=== PATIENT | female | born 1950 | race Caucasian/White ===

== ENCOUNTER → 2018-11-13 | Outpatient (CLI) | payer OTHER, MEDICARE ==
[~2018-11-13] VITALS: Ht 172.7 cm; Wt 76.2 kg
[~2018-11-13] MED LIST: ALLERCLEAR10 MG PO; ASPIR 8181 MG PO; ATORVASTATIN CA40 MG PO; CALCIUM 500 +1 EAC5; CALCIUM 500 +1 EAC5 PO; LEVOXYL50 MCG PO; OMEPRAZOLE 20 M20 M1 PO; OSTEO BI-FLEX1 EAC1 PO; PANTOPRAZOLE SO40 M1 PO; SIMVASTATIN40 MG PO; VITAMIN B COMP1 EACH PO; VITAMIN B-12500 MCG PO; VITAMIN D-32000 UNIT PO
--- NOTE | 2018-11-14 17:06 | PATH ---
[facility] [place] [address] [place] [address] PATHOLOGY RPT PROCEDURE Name: JAYA DOYLE Room #: REG PATRICK Ric.#: [id number] ������������������ Admission: 11/13/18 ������������������ Date of : 52 Discharge: Report #: [id number] Path Case #: [id number] [facility] Accession Number: [id number] . 01 Material submitted: . PART A: BX GASTRIC ULCER, GASTRITIS R/O H-PYLORI PART B: POLYP AT MID ASCENDING COLON PART C: BX POLYP AT HEPATIC FLEXURE PART D: BX POLYP AT MID TRANSVERSE COLON PART E: BX POLYP AT 60CM . 01 Clinical history: . Pre-OP DX: Polyps, GERD Post-OP DX: Gastric ulcer, gastritis, esophagitis, colon polyp, diverticulosis, hemorrhoids . 02 Diagnosis: A. Gastric mucosa, gastric ulcer, gastritis rule out H. pylori, endoscopic biopsy: - Mild chronic gastritis with features of reactive gastropathy. - Negative for intestinal metaplasia or atrophy. - Negative for Helicobacter pylori (properly controlled immunohistochemical stain performed). . B. Polyp, at mid ascending colon, endoscopic biopsy: - Tubular adenoma. - Negative for high-grade dysplasia. . C. Polyp, at hepatic flexure, endoscopic biopsy: - Tubular adenoma. - Negative for high-grade dysplasia. . D. Polyp, at mid transverse colon, endoscopic biopsy: - Hyperplastic polyp. - Negative for dysplasia. . E. Polyp, at 60 cm, endoscopic biopsy: - Tubular adenoma. - Negative for high-grade dysplasia. . 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 02 Comment: A. Active ulcer is not identified with the fragments sampled as "gastric ulcer, gastritis". Please correlate clinically. 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 02 Electronically signed: . Yahaira Frias MD, Pathologist NPI- [id number] . 01 Gross description: . A. Received in formalin labeled "Jaya Doyle, BX gastric ulcers and gastritis," are 5 segments of noriega soft tissue measuring 1.3 x 0.4 x 0.3 cm in aggregate dimensions and ranging from 0.3 to 0.4 cm in maximum dimension. The specimen is submitted entirely in cassette A1. . B. Received in formalin labeled "Jaya Doyle, polyp at mid ascending colon," is a 0.4 x 0.3 x 0.3 cm polypoid piece of noriega soft tissue with a stalk measuring 0.8 cm in length and 0.2 cm in diameter. The margin of the stalk is inked and the specimen is sectioned perpendicular to the margin and entirely submitted in cassette B1. . C. Received in formalin labeled "Jaya Doyle, BX polyp at hepatic flexure," are 3 segments of noriega soft tissue measuring 0.9 x 0.5 x 0.1 cm in aggregate dimensions and ranging from 0.3 to 0.5 cm in maximum dimension. The specimen is submitted entirely in cassette C1. . D. Received in formalin labeled "Jaya Doyle, BX polyp mid transverse colon," is a single segment of noriega soft tissue measuring 0.5 cm in maximum dimension. The specimen is entirely submitted in cassette D1. . E. Received in formalin labeled "Jaya Doyle, BX polyp at 60 cm," is a single segment of noriega soft tissue measuring 0.3 cm in maximum dimension. The specimen is entirely submitted in cassette E1. (TSD; 11/13/2018) TOB/TOB . 02 Pathologist provided ICD-10: K29.50, K31.9, D12.2, D12.3, K63.5, D12.6 . 02 CPT . 816803, 343779, 120786, 213083, 411378, C79505 Specimen Comment: A courtesy copy of this report has been sent to Specimen Comment: [phone]. Specimen Comment: Report sent to Performed at: [address] [facility], [place], [place] [id number] MD Gume Mata MD Phone: [phone] Performed at: [address] [id number] MD Yahaira Frias MD Phone: [phone]
--- NOTE | 2018-11-15 12:36 | P ---
[facility] [place] [place] [address] PROCEDURE REPORT Name: JAYA LARA Room #: REG [facility]#: [id number] Admission: 11/13/18 ������������������ Attend Phys: Tae Chanel MD Discharge: ������������������ Date of : 52 Report #: [id number] THIS REPORT FOR: //name// CC: Indio Bentley BRIEF HISTORY: The patient is a 68-year-old woman with history of reflux symptoms and previous esophagitis, grade C. She takes omeprazole 40 mg twice daily and reports that she will not uncommonly have at least 2 episodes of heartburn during the day. She does take a baby aspirin daily. PREOPERATIVE DIAGNOSIS: Persistent reflux symptoms and also upper abdominal pain. POSTOPERATIVE DIAGNOSES: 1. Small benign-appearing antral ulcer. 2. Gdspdabw-rv-yvwcag erosive antral gastritis. 3. Grade A esophagitis. 4. Bile staining stomach. MEDICATIONS: Deep sedation with propofol per anesthesia. SPECIMEN: Biopsies of gastritis. ESTIMATED BLOOD LOSS: 3 mL. PROCEDURE: EGD with biopsy. FINDINGS: Prior to propofol sedation, procedure of upper endoscopy was discussed with the patient as well as potential risks and its complications. She indicates she understands and desires to proceed. DESCRIPTION OF PROCEDURE: With the patient in left lateral decubitus position, the Olympus video endoscope was inserted in the cervical esophagus under direct vision without difficulty. Examination of this organ through its entire length revealed normal esophageal mucosa down the squamocolumnar junction. Squamocolumnar junction was inspected. There was an erosion with a small amount of exudate right at the squamocolumnar junction consistent with grade A esophagitis. No strictures or masses were seen. A significant hiatus hernia was not seen. There was no endoscopic evidence of Moy mucosa. The squamocolumnar junction was right at the gastroesophageal junction. The scope was advanced in the stomach, was examined on end view as well as retroflexed views. She had diffuse erythema throughout the entire stomach and loss of vascularity consistent with a diffuse gastritis. In addition, there was a small amount of bilious material in the body of the stomach that was aspirated away. [facility] [address] [place] [address] PROCEDURE REPORT Name: JAYA LARA Maye Room #: REG PATRICK Baez#: [id number] Admission: 11/13/18 ������������������ Attend Phys: Tae Chanel MD Discharge: ������������������ Date of : 52 Report #: [id number] Further examination of stomach revealed long erosions in the antrum of the stomach. In the prepyloric antrum at about the 11 o'clock position was a small, no more than 5 cm irregular shaped ulcer that had a smooth benign appearance. Biopsies were obtained of the gastritis and the ulcer. Upon retroflexion, no mass lesions were seen. The pylorus was normal. Examination of duodenal bulb revealed patchy erythematous duodenitis. No ulcers were seen. Duodenal sweep down to the third portion was unremarkable. At that point, the scope was slowly withdrawn and careful circumferential views confirmed the above finding. The patient tolerated the procedure well. CONDITION OF THE PATIENT UPON DISCHARGE: Following procedure, the patient drowsy. She was then prepared for colonoscopy. INSTRUCTIONS TO THE PATIENT AND FAMILY AT THE TIME OF DISCHARGE: The patient with findings of small ulcer, gastritis, esophagitis and duodenitis. She has some bile staining. We will change her PPI to pantoprazole 40 mg twice daily. Due to the retained bile, also add sucralfate 1 g 30 minutes a.c. and at bedtime. We will have her return to see me in followup in the office in about 8 weeks to monitor symptoms. If she continues with reflux symptoms in spite of medical therapy, an antireflux procedure may be consideration for this patient. Proceed with colonoscopy at this time. ��������������������������������������������� <ELECTRONICALLY SIGNED> ���������������������������������������� By: Tae Chanel MD ��������������������������������������������� 11/15/18 1236 [id number] Tae Chanel MD /nt
--- NOTE | 2018-11-15 12:36 | P ---
[facility] [place] [address] [address] [place] [address] PROCEDURE REPORT Name: JAYA LARA Room #: REG [facility]#: [id number] Admission: 11/13/18 ������������������ Attend Phys: Tae Chanel MD Discharge: ������������������ Date of : 52 Report #: [id number] THIS REPORT FOR: //name// CC: Indio Bentley DATE OF SERVICE: 11/13/2018 BRIEF HISTORY: The patient is a 68-year-old woman with history of colon polyps. She presents for high risk screening colonoscopy due to history of polyps. Also, family history of colon cancer in father, sister had uterine cancer. PREOPERATIVE DIAGNOSIS: High risk screening colonoscopy. POSTOPERATIVE DIAGNOSES: 1. Multiple colon polyps. 2. Moderately severe diverticulosis coli, left and right colon. 3. Small internal hemorrhoids. MEDICATIONS: Deep sedation with propofol per Anesthesia. SPECIMENS: 1. Mid ascending sessile colon polyp. 2. Diminutive polyp, hepatic flexure. 3. Diminutive polyp, mid transverse colon. 4. Diminutive polyp, 60 cm. ESTIMATED BLOOD LOSS: 3 mL. PROCEDURE: Colonoscopy to cecum and terminal ileum with snare polypectomy and biopsy. FINDINGS: Prior to propofol sedation, procedure of colonoscopy discussed with the patient as well as potential risks and its complications. She indicates she understands and desires to proceed. DESCRIPTION OF PROCEDURE: The patient in left lateral decubitus position, digital examination was completed, which revealed no abnormalities. Subsequently, the Olympus video colonoscope was introduced in the rectum under direct vision to the cecum. This was done with minimal difficulty. The cecum was identified by the ileocecal valve, the appendiceal orifice. I was able to visualize the distal segment of the terminal ileum, which was inspected and noted to be unremarkable. At that point, the scope was slowly withdrawn and careful circumferential views obtained including retroflexing the scope in the [facility] [address] [place] [address] PROCEDURE REPORT Name: JAYA LARA Maye Room #: REG [facility] Ric.#: [id number] Admission: 11/13/18 ������������������ Attend Phys: Tae Chanel MD Discharge: ������������������ Date of : 52 Report #: [id number] ascending colon. The prep was excellent. The mucosa was within normal limits, normal vascular pattern, normal light reflex. As we withdrew the scope, she was noted to have a number of polyps. There was a 5-6 mm sessile somewhat bulky polyp in the mid ascending colon, which we removed by cold snare polypectomy. The scope was further withdrawn and a diminutive polyp was seen and removed by biopsy from the hepatic flexure, another diminutive polyp was seen and removed by biopsy from the mid transverse colon, and another was removed at 60 cm. The scope was further withdrawn and no additional polypoid lesions were seen. However, she was noted to have diverticular disease on examination today. She was noted to have weag-cq-ecohbnjc diverticular disease scattered throughout the proximal colon including somewhat in the transverse colon. The disease was most prominent in the distal descending colon and sigmoid colon where it was moderately severe. There was no endoscopic evidence of diverticulitis. The scope was withdrawn in the rectum. Upon retroflexion, no abnormalities were seen. Upon retroflexion, small hemorrhoids were seen. Scope was withdrawn. The patient tolerated the procedure well. CONDITION OF THE PATIENT UPON DISCHARGE: Following procedure, the patient was drowsy, arousable and conversant. She will be discharged home when fully ambulatory. INSTRUCTIONS TO THE PATIENT AND FAMILY AT THE TIME OF DISCHARGE: We will follow up on the path report. If 3 or more polyps are adenomas or serrated lesions, she should return in 3 years; if only 1 or 2 adenomas or serrated then she should return in 5 years; if by chance none of them are neoplastic lesions, then she should return in 10 years. Also, suggest high-fiber diet for diverticular disease. Last colonoscopy was nearly 6 years ago. Withdrawal time from the cecum was 10 minutes 31 seconds. ��������������������������������������������� <ELECTRONICALLY SIGNED> ���������������������������������������� By: Tae Chanel MD ��������������������������������������������� 11/15/18 1236 [id number] Tae Chanel MD /nt
== END ==
LOC: GI 05:48
DX: Z12.11 Encounter for screening for malignant neoplasm of colon (principal); D12.2 Benign neoplasm of ascending colon; D12.3 Benign neoplasm of transverse colon; K63.5 Polyp of colon; D12.4 Benign neoplasm of descending colon; K57.30 Diverticulosis of large intestine without perforation or abscess without bleeding; K64.8 Other hemorrhoids; K25.9 Gastric ulcer, unspecified as acute or chronic, without hemorrhage or perforation; K29.50 Unspecified chronic gastritis without bleeding; K21.0 Gastro-esophageal reflux disease with esophagitis; K29.80 Duodenitis without bleeding; E78.5 Hyperlipidemia, unspecified; K21.9 Gastro-esophageal reflux disease without esophagitis; J45.909 Unspecified asthma, uncomplicated; K31.84 Gastroparesis; Z80.0 Family history of malignant neoplasm of digestive organs; Z90.49 Acquired absence of other specified parts of digestive tract; Z98.890 Other specified postprocedural states; Z88.8 Allergy status to other drugs, medicaments and biological substances; Z79.82 Long term (current) use of aspirin; Z79.899 Other long term (current) drug therapy
CPT/HCPCS: 62110; 62900